=== PATIENT | female | born 1985 | race African-American/Black ===

== ENCOUNTER 2022-04-18 09:49 | Inpatient (IN) | payer OTHER ==
[~2022-04-18] VITALS: Ht 162.6 cm; Wt 109.0 kg
[2022-04-18] MEDS ORDERED: BUTORPHANOL TARTRATE 2 MG/ML VIAL IV PRN (10:15)
[2022-04-18] MEDS ORDERED: MISOPROSTOL 100MCG TABLET VG SCH (10:15)
[2022-04-18] MEDS ORDERED: METHYLERGONOVINE MALEATE 0.2 MG/ML IM PRN (10:15)
[2022-04-18] MEDS ORDERED: LACTATED RINGERS 1,000 ML IV SCH (10:15)
[2022-04-18] MEDS ORDERED: LIDOCAINE HCL 1% 20ML VIAL (Pyxis) INJ INFIL SCH (10:15)
[2022-04-18] MEDS ORDERED: CARBOPROST TROMETHAMINE 250 MCG/ML AMPUL IM PRN (10:15)
[2022-04-18] MEDS ORDERED: PENICILLIN G POTASSIUM 5 MMU in DEXT 5% WATER 100 ML IV NR (10:30)
[2022-04-18] MEDS: DEXT 5%/LR + PITOCIN 20UNITS/L 1,000 ML IV SCH ×2 (11:03→11:49)
[2022-04-18 11:06] LABS: BASOPHILS % 0.3 % (0.0-2.0); EOSINOPHILS % 0.2 % (0.0-5.0); HEMATOCRIT. 38.1 % (36.0-48.0); MEAN PLATELET VOLUME 7.8 fl (7.4-10.4); MONOCYTES % 4.9 % (2.0-8.0); NEUTROPHILS % 81.6 % (40.0-76.0); PLATELET 233 x1000/uL (130-400); RED BLOOD CELL COUNT 4.33 mill/uL (4.2-5.4); RED CELL DISTRIBUTION WIDTH 14.7 % (11.6-14.6)
[2022-04-18 11:15] LABS: INR 0.9; PARTIAL THROMBOPLASTIN TIME 28.1 sec (23.4-31.0); PROTHROMBIN TIME 9.4 sec (9.6-11.0)
[2022-04-18] MEDS ORDERED: DEXT 5%/LR + PITOCIN 20UNITS/L 1,000 ML IV SCH (13:00)
[2022-04-18] MEDS ORDERED: DIPHENHYDRAMINE 25MG CAPSULE PO PRN (13:00)
[2022-04-18] MEDS ORDERED: LANOLIN OINT 7GM TUBE TOP PRN (13:00)
[2022-04-18] MEDS ORDERED: ACETAMINOPHEN WITH CODEINE 300/30MG TABLET PO PRN (13:00)
[2022-04-18] MEDS ORDERED: RHO(D) IMMUNE GLOBULIN 300 MCG/SYR IM PRN (13:00)
[2022-04-18] MEDS ORDERED: HEMORRHOIDAL SUPP PR PRN (13:00)
[2022-04-18] MEDS ORDERED: IBUPROFEN 400MG TABLET PO PRN (13:00)
[2022-04-18] MEDS ORDERED: GLYCERIN/WITCH HAZEL LEAF MEDICATED PAD TOP PRN (13:00)
[2022-04-18] MEDS ORDERED: METHYLERGONOVINE MALEATE 0.2MG TABLET PO SCH (13:00)
[2022-04-18] MEDS ORDERED: BISACODYL 10MG SUPP PR PRN (13:00)
[2022-04-18] MEDS ORDERED: BENZOCAINE/LANOLIN/ALOE VERA SPRAY TOP PRN (13:00)
[2022-04-18 13:30] VITALS: BP 115/59
[2022-04-18 14:00] VITALS: BP 118/62
[2022-04-18 14:33] LABS: HEPATITIS B SURFACE ANTIGEN NEGATIVE
[2022-04-18 15:00] VITALS: BP 120/76
[2022-04-18 18:01] LABS: *AMPHETAMINES SCREEN URINE NEGATIVE (NEGATIVE); *BARBITURATES SCREEN URINE NEGATIVE (NEGATIVE); *BENZODIAZEPINES SCREEN URINE NEGATIVE (NEGATIVE); *COCAINE SCREEN URINE NEGATIVE (NEGATIVE); CANNABINOID URINE SCREEN NEGATIVE (NEGATIVE); METHADONE URINE SCREEN NEGATIVE (NEGATIVE); OPIATES URINE SCREEN NEGATIVE (NEGATIVE); PHENCYCLIDINE URINE SCREEN NEGATIVE (NEGATIVE)
[2022-04-18] MEDS: MAGNESIUM/ALUMINUM HYDROXIDE/SIMETHICONE 30ML UDC PO SCH ×2 (18:30→22:10)
[2022-04-18] MEDS: SIMETHICONE 80MG TABLET CHEW PO SCH ×2 (18:31→22:10)
[2022-04-18] MEDS: IBUPROFEN 800MG TABLET PO PRN (18:32)
[2022-04-18 20:00] VITALS: BP 111/63
[2022-04-18] MEDS: DOCUSATE SODIUM 100MG CAPSULE PO SCH (22:10)
[2022-04-19 02:40] LABS: *AMPHETAMINES SCREEN URINE NEGATIVE (NEGATIVE); *BARBITURATES SCREEN URINE NEGATIVE (NEGATIVE); *BENZODIAZEPINES SCREEN URINE NEGATIVE (NEGATIVE); *COCAINE SCREEN URINE NEGATIVE (NEGATIVE); CANNABINOID URINE SCREEN NEGATIVE (NEGATIVE); METHADONE URINE SCREEN NEGATIVE (NEGATIVE); OPIATES URINE SCREEN NEGATIVE (NEGATIVE); PHENCYCLIDINE URINE SCREEN NEGATIVE (NEGATIVE)
[2022-04-19 03:18] LABS: CLARITY URINE TURBID (CLEAR); COLOR URINE BLOODY (YELLOW); KETONES URINE NEGATIVE (NEGATIVE); OCCULT BLOOD URINE 3+ (NEGATIVE); PROTEIN URINE 1+ (NEGATIVE); SPECIFIC GRAVITY URINE 1.025 (1.005-1.030)
[2022-04-19 03:19] LABS: LEUKOCYTE ESTERASE URINE NEGATIVE (NEGATIVE); NITRITE URINE NEGATIVE (NEGATIVE); UROBILINOGEN URINE 0.2 E.U./dL (0.2-1.0)
[2022-04-19 04:10] VITALS: BP 111/53
[2022-04-19 06:21] LABS: BASOPHILS % 0.5 % (0.0-2.0); EOSINOPHILS % 1.7 % (0.0-5.0); HEMATOCRIT. 31.2 % (36.0-48.0); HEMOGLOBIN. 10.6 g/dL (12.0-16.0); LYMPHOCYTES % 22.6 % (20.0-50.0); MEAN CORPUSCULAR HEMOGLOBIN 30.5 pg (28.0-32.0); MEAN CORPUSCULAR VOLUME 89.4 fL (81.0-99.0); MEAN PLATELET VOLUME 7.9 fl (7.4-10.4); MONOCYTES % 6.2 % (2.0-8.0); PLATELET 198 x1000/uL (130-400); RED BLOOD CELL COUNT 3.48 mill/uL (4.2-5.4); RED CELL DISTRIBUTION WIDTH 15.2 % (11.6-14.6)
[2022-04-19] MEDS: IBUPROFEN 800MG TABLET PO PRN ×2 (07:08→16:33)
[2022-04-19 07:45] VITALS: BP 102/51
[2022-04-19] MEDS: MAGNESIUM/ALUMINUM HYDROXIDE/SIMETHICONE 30ML UDC PO SCH ×3 (08:13→21:28)
[2022-04-19] MEDS: SIMETHICONE 80MG TABLET CHEW PO SCH ×3 (08:13→21:28)
[2022-04-19] MEDS: PRENATAL VIT/FE FUMARATE/FA TABLET PO SCH (08:13)
[2022-04-19] MEDS: FERROUS SULFATE 325MG TABLET PO SCH ×2 (08:13→16:33)
[2022-04-19 16:00] VITALS: BP 126/64
[2022-04-19 19:30] VITALS: BP 127/73
[2022-04-19] MEDS: DOCUSATE SODIUM 100MG CAPSULE PO SCH (21:27)
[2022-04-20 04:00] VITALS: BP 138/83
[2022-04-20 08:00] VITALS: BP 112/46
[2022-04-20 08:24] VITALS: BP 138/83
[2022-04-20] MEDS: FERROUS SULFATE 325MG TABLET PO SCH (08:24)
[2022-04-20] MEDS: IBUPROFEN 800MG TABLET PO PRN (08:24)
[2022-04-20] MEDS: PRENATAL VIT/FE FUMARATE/FA TABLET PO SCH (08:24)
== END 2022-04-20 12:10 | disposition left against medical advice (07) | DRG 806 ==
LOC: EDBD 09:49 → 8 EST LDRP 09:49 → OBSVTOIN 09:49 → 8EST 13:00
PROVIDERS: ADMIT Obstetrics & Gynecology; ATTEND Obstetrics & Gynecology
PROC: 10D07Z6 Extraction of Products of Conception, Vacuum, Via Natural or Artificial Opening (ICD-10-PCS; principal; 2022-04-18)
DX: O99.214 Obesity complicating childbirth (principal); D62 Acute posthemorrhagic anemia; Z37.0 Single live birth; O34.219 Maternal care for unspecified type scar from previous cesarean delivery; O90.81 Anemia of the puerperium; Z20.822 Contact with and (suspected) exposure to COVID-19; Z3A.39 39 weeks gestation of pregnancy
CPT/HCPCS: 36415; 80305; 80359; 81003; 85025; 85610; 85730; 86592; 86703; 86762; 86850; 86900; 86901; 87340; 87426; 99281; G0378; J0595; J2540; J2590; J7060; J7120